=== PATIENT | male | born 1970 | race Two or more races ===

== ENCOUNTER 2017-02-09 08:41 | Emergency (ER) | payer OTHER ==
[~2017-02-09] VITALS: Ht 162.6 cm; Wt 80.7 kg
[~2017-02-09 08:41] MED LIST: ARIP20TA10 PO; CARB200T8 PO; CLON1TAB4 PO; LEVO75TA7 PO
--- NOTE | 2017-02-09 09:00 | NUR ---
BIB SELF C/O DEPRESSION AND ANXIETY, DENIES SI/HI, +AUDITORY/VISUAL HALLUCINATION, RESP EVEN AND UNLABORED, NAD NOTED, VSS, SEEN BY MD. WAITING FOR ORDERS
[2017-02-09 09:17] LABS: APPEARANCE,URINE CLEAR (CLEAR); BILIRUBIN,URINE NEGATIVE (NEGATIVE); BLOOD, URINE NEGATIVE Ery/uL (NEGATIVE); COLOR,URINE YELLOW (YELLOW); KETONES,URINE NEGATIVE (NEGATIVE); LEUKOCYTE ESTERASE ,URINE NEGATIVE (NEGATIVE); NITRITE, URINE NEGATIVE (NEGATIVE); PROTEIN,URINE NEGATIVE (NEGATIVE); UGLUCOSE NEGATIVE (NEGATIVE); UROBILINOGEN,URINE 0.2 EU/dL (0.2)
[2017-02-09 09:19] LABS: BASOPHILS % (AUTO) 0.3 % (0.0-2.0); EOSINOPHILS % (AUTO) 0.1 % (0.0-6.0); HEMATOCRIT 42 % (39-51); HEMOGLOBIN 13.9 g/dL (13.5-17.5); LYMPHOCYTES # (AUTO) 10.5 /CMM (0.8-4.8); LYMPHOCYTES % (AUTO) 67.9 % (20.0-44.0); MEAN CORPUSCULAR HEMOGLOBIN 31 PG (26.0-33.0); MEAN CORPUSCULAR HGB CONC 33 g/dl (31.0-36.0); MEAN CORPUSCULAR VOLUME 92 fL (80-96); MONOCYTES # (AUTO) 0.5 /CMM (0.1-1.30); MONOCYTES % (AUTO) 3.3 % (2.0-12.0); NEUTROPHILS # (AUTO) 4.4 /CMM (1.8-8.9); NEUTROPHILS % (AUTO) 28.4 % (43.0-81.0); PLATELET COUNT (AUTO) 393 /CMM (150-450); RED BLOOD CELL COUNT(AUTO) 4.52 MIL/uL (4.5-6.0); WHITE BLOOD COUNT (AUTO) 15.5 K/uL (4.3-11.0)
[2017-02-09 09:24] LABS: CALCIUM, SERUM 8.7 mg/dL (8.5-10.1); CARBON DIOXIDE 29 mmol/L (21-32); CHLORIDE 96 mmol/L (98-107); CREATININE 0.8 mg/dL (0.6-1.3); GLUCOSE 90 mg/dL (74-106); POTASSIUM 4.1 mmol/L (3.5-5.1); SODIUM SERUM 132 mmol/L (136-145); UREA NITROGEN, BLOOD 8 mg/dL (7-18)
[2017-02-09 09:33] LABS: ALANINE AMINOTRANSFERASE 25 U/L (12-78); ALBUMIN 4.4 g/dL (3.4-5.0); ALKALINE PHOSPHATASE 58 U/L (46-116); ASPARTATE AMINOTRANSFERASE 19 U/L (15-37); BILIRUBIN,DIRECT 0.1 mg/dL (0.0-0.2); BILIRUBIN,TOTAL 0.5 mg/dL (0.2-1.0)
[2017-02-09 09:37] LABS: ACETAMINOPHEN 0 ug/ml (10-30); SALICYLATE 1.8 mg/dL (2.8-20.0)
--- NOTE | 2017-02-09 09:46 | NUR ---
carlyle order runner at bedside for eval
[2017-02-09 09:47] LABS: ALCOHOL, BLOOD < 3 mg/dL (0-0)
[2017-02-09 11:14] VITALS: BP 140/94
--- NOTE | 2017-02-09 11:14 | NUR ---
medically and psych cleared. Patient discharged to home in stable condition. Written and verbal after care instructions given. Patient verbalizes understanding of instruction.
== END 2017-02-09 11:15 | disposition home or self-care (01) ==
LOC: ER 08:43
DX: F41.9 Anxiety disorder, unspecified (principal); E03.9 Hypothyroidism, unspecified; F43.10 Post-traumatic stress disorder, unspecified; F31.9 Bipolar disorder, unspecified
CPT/HCPCS: 36415; 80048; 80076; 80305; 80329; 81001; 85025; 99284; A4606; G0480 ×2; 81000-TC; Z7610

== ENCOUNTER 2017-09-09 10:15 | Inpatient (IN) | payer OTHER ==
[~2017-09-09] VITALS: Ht 162.6 cm; Wt 80.7 kg
[~2017-09-09 10:15] MED LIST changes: -CLON1TAB4 PO; +CLON1TAB5 PO
--- NOTE | 2017-09-09 10:25 | NUR ---
aaox3, came to ER c/o generalized weakness. Skin is warm and dry. Resp is even and unlabored with NAD noted. Placed on the monitor. Will continuously monitor the patient. Awaiting MD for eval.
[2017-09-09 11:07] LABS: BASOPHILS # (AUTO) 0.2 /CMM (0.0-0.2); EOSINOPHILS % (AUTO) 0.1 % (0.0-6.0); HEMATOCRIT 40 % (39-51); HEMOGLOBIN 13.6 g/dL (13.5-17.5); LYMPHOCYTES # (AUTO) 14.3 /CMM (0.8-4.8); LYMPHOCYTES % (AUTO) 69.3 % (20.0-44.0); MEAN CORPUSCULAR HGB CONC 34 g/dl (31.0-36.0); MEAN CORPUSCULAR VOLUME 90 fL (80-96); MONOCYTES # (AUTO) 0.9 /CMM (0.1-1.30); MONOCYTES % (AUTO) 4.6 % (2.0-12.0); NEUTROPHILS # (AUTO) 5.2 /CMM (1.8-8.9); PLATELET COUNT (AUTO) 449 /CMM (150-450); RDW COEFFICIENT OF VARIATION 11.9 (11.5-15.0); RED BLOOD CELL COUNT(AUTO) 4.42 MIL/uL (4.5-6.0); WHITE BLOOD COUNT (AUTO) 20.6 K/uL (4.3-11.0)
--- NOTE | 2017-09-09 11:16 | NUR ---
CALLED LOCO FOR PSYCH EVAL, NO ANSWER, LEFT MESSAGE ON VOICEMAIL
[2017-09-09 11:22] LABS: ALANINE AMINOTRANSFERASE 24 U/L (12-78); ALBUMIN 3.9 g/dL (3.4-5.0); ALCOHOL, BLOOD < 3 mg/dL (0-0); ALKALINE PHOSPHATASE 62 U/L (46-116); ASPARTATE AMINOTRANSFERASE 21 U/L (15-37); BILIRUBIN,DIRECT 0.2 mg/dL (0.0-0.2); BILIRUBIN,TOTAL 0.6 mg/dL (0.2-1.0); CALCIUM, SERUM 8.3 mg/dL (8.5-10.1); CARBON DIOXIDE 24 mmol/L (21-32); CREATININE 0.7 mg/dL (0.6-1.3); GLUCOSE 97 mg/dL (74-106); TOTAL PROTEIN, SERUM 8.7 g/dL (6.4-8.2); UREA NITROGEN, BLOOD 8 mg/dL (7-18)
--- NOTE | 2017-09-09 11:34 | NUR ---
TRIED TO REACH LOCO AGAIN FOR PSYCH EVAL, NO ANSWER.
[2017-09-09 11:35] LABS: ACETAMINOPHEN < 2 ug/ml (10-30); CHLORIDE 86 mmol/L (98-107); POTASSIUM 3.7 mmol/L (3.5-5.1); SALICYLATE 1.5 mg/dL (2.8-20.0)
[2017-09-09 11:36] LABS: SODIUM SERUM 116 mmol/L (136-145)
--- NOTE | 2017-09-09 11:51 | NUR ---
CALLED NURSING SUP. FOR TELE BED
[2017-09-09] MEDS ORDERED: ARIP15TA8 PO (12:00)
--- NOTE | 2017-09-09 12:03 | NUR ---
TELE 320-1
[2017-09-09 12:11] LABS: APPEARANCE,URINE Clear (CLEAR); BILIRUBIN,URINE Negative (NEGATIVE); BLOOD, URINE Negative Ery/uL (NEGATIVE); COLOR,URINE Yellow (YELLOW); KETONES,URINE Trace (NEGATIVE); LEUKOCYTE ESTERASE ,URINE Negative (NEGATIVE); NITRITE, URINE Negative (NEGATIVE); PROTEIN,URINE Negative (NEGATIVE); UGLUCOSE Negative (NEGATIVE); UROBILINOGEN,URINE 0.2 EU/dL (0.2)
[2017-09-09 12:13] LABS: BACTERIA,URINE Rare /HPF (None Seen); RBC,URINE NONE SEEN /HPF (0-2); SQUAMOUS EPITHELIAL CELL,UR Few /HPF (None Seen); WBC,URINE NONE SEEN /HPF (0-3)
[2017-09-09 12:40] LABS: BAND % (MANUAL) 1 % (0.0-5.0); LYMPHOCYTES % (MANUAL) 51 % (16-48); MONOCYTES % (MANUAL) 5 % (0-11.0); NEUTROPHILS % (MANUAL) 34 (42-76); REACTIVE LYMPHOCYTES 9 % (0-0)
[2017-09-09 13:00] VITALS: BP 142/88
[2017-09-09] MEDS: LEVOTHYROXINE SODIUM 75 MCG TABLET PO SCH (13:00)
[2017-09-09] MEDS ORDERED: TEMAZEPAM 15 MG CAPSULE PO PRN (13:00)
[2017-09-09] MEDS ORDERED: ACETAMINOPHEN ES 500 MG TABLET PO PRN (13:00)
[2017-09-09] MEDS: CARBAMAZEPINE 200 MG TABLET PO SCH ×2 (13:00→21:15)
[2017-09-09] MEDS ORDERED: clonazePAM 1 MG TABLET PO PRN (13:00)
[2017-09-09] MEDS ORDERED: GUAIFENESIN/D-METHORPHAN HB 5 ML UDC PO PRN (13:00)
--- NOTE | 2017-09-09 13:02 | NUR ---
Report given to RAÚL Abernathy for [facility] Tele 320-1
[2017-09-09 13:15] VITALS: BP 142/88
--- NOTE | 2017-09-09 13:20 | NUR ---
PATIENT RECEIVED AND IN BED. NO SOB OR DISTRESS NOTED AT THIS TIME. PATIENT DENIES PAIN. PATIENT ORIENTED TO ROOM AND CALL LIGHT. PLACED ON MONITOR, HEART RATE SR 72. ALL BELONGINGS ACCOUNTED FOR. BED IN A LOW POSITION, CALL LIGHT WITHIN PATIENT REACH. WILL MONITOR.
[2017-09-09] MEDS: LEVOFLOXACIN 500 MG /D5W 100ML 500 MG in PREMIX 1 EA IV SCH (13:37)
[2017-09-09] MEDS: clonazePAM 1 MG TABLET PO PRN (13:37)
[2017-09-09] MEDS: Potassium Chloride 20 MEQ in IV NS 0.9% 1,000 ML IV PRN (13:37)
--- NOTE | 2017-09-09 13:47 | NUR ---
PT REFUSED SYNTHROID AND TEGRETOL HE STATES HE ALREADY TOOK THESE MEDICATIONS TODAY. STATES HE TAKES TEGRETOL 200MG IN AM AND 600 IN THE EVENING. WILL CALL CELIA TO SEE IF HE WISHED TO CONTINUE AM DOSE.
--- NOTE | 2017-09-09 13:55 | NUR ---
CALLED DR YANG AND INFORMED THE MD THAT THE PATIENT ALSO TAKES 200MG TEGRETOL IN THE AM. MD STATES TO CONTINUE ANYTHING THE PATIENT NORMALLY TAKES AT HOME WITH NO RESTRICTION. SENT MED REC TO PHARMACY FOR UPDATE.
--- NOTE | 2017-09-09 14:16 | NUR ---
FAXED PT FACE SHEET TO [facility] PER DR YANG'S ORDER. CALLED TO CONFIRM THE FACE SHEET WAS RECEIVED. STAFF STATE THE SHEET IS RECEIVED AND DR KOWALSKI IS ON THE FLOOR. IS INFORMED OF CONSULT.
--- NOTE | 2017-09-09 15:49 | NUR ---
called for consult, per he will come to see pt tomorrow
[2017-09-09 16:00] VITALS: BP 108/71
--- NOTE | 2017-09-09 19:15 | NUR ---
RN OPENING NOTES RECEIVED PATIENT AMBULATING FROM THE BATHROOM, ALERT AND ORIENTED X 4, SAFELY WALKED BACK TO BED, AWARE OF SAFETY NEEDS. PT NOTED WITH NO SOB, BREATHING EVEN AND UNLABORED, WITH NO C/O PAIN AND IN NO ACUTE DISTRESS. ALL PATIENT'S NEEDS ATTENDED TO AT THIS TIME. PATIENT RECEIVING IVF ORDERED. PLACED BED IN LOW POSITION AND LOCKED IN PLACE. CALL LIGHT IN EASY REACH. WILL CONTINUE TO MONITOR.
--- NOTE | 2017-09-09 19:20 | NUR ---
OVERLOCK ELASTIC ATTACHER NOTES PATIENT UNDER TELE MONITORING WITH SR @ 70 BPM.
[2017-09-09 20:30] VITALS: BP 108/69
--- NOTE | 2017-09-09 21:15 | NUR ---
RN NOTES PATIENT TOOK OWN MEDICATION AT THIS TIME: TEGRETOL 600 MG PO, PER PATIENT'S REQUEST. RESPECTED PATIENT'S DECISION. PATIENT TOOK OWN MEDICATION UNDER RN SUPERVISION. EXPLAINED TO PATIENT THAT ALL MEDICATION AT BEDSIDE NEEDS TO BE COLLECTED. PATIENT VERBALIZED UNDERSTANDING. ALL PATIENT'S NEEDS ATTENDED TO, PLACED CALL LIGHT WITHIN EASY REACH. WILL CONTINUE TO MONITOR.
[2017-09-09] MEDS ORDERED: ARIPIPRAZOLE 5 MG TABLET PO SCH (22:00)
[2017-09-10] VITALS: BP 105/68
[2017-09-10] MEDS ORDERED: IV PREMIX NS +20MEQ KCL 1 L IV ONE (02:36)
[2017-09-10] MEDS: Potassium Chloride 20 MEQ in IV NS 0.9% 1,000 ML IV PRN (02:58)
[2017-09-10 04:26] VITALS: BP 103/69
[2017-09-10 06:28] LABS: BASOPHILS # (AUTO) 0.1 /CMM (0.0-0.2); BASOPHILS % (AUTO) 0.5 % (0.0-2.0); EOSINOPHILS % (AUTO) 0.1 % (0.0-6.0); HEMATOCRIT 39 % (39-51); HEMOGLOBIN 13.3 g/dL (13.5-17.5); LYMPHOCYTES # (AUTO) 11.8 /CMM (0.8-4.8); MEAN CORPUSCULAR HGB CONC 34 g/dl (31.0-36.0); MEAN CORPUSCULAR VOLUME 91 fL (80-96); MONOCYTES # (AUTO) 0.7 /CMM (0.1-1.30); MONOCYTES % (AUTO) 4.3 % (2.0-12.0); NEUTROPHILS # (AUTO) 3.4 /CMM (1.8-8.9); NEUTROPHILS % (AUTO) 21.1 % (43.0-81.0); PLATELET COUNT (AUTO) 350 /CMM (150-450); RDW COEFFICIENT OF VARIATION 13.4 (11.5-15.0); RED BLOOD CELL COUNT(AUTO) 4.26 MIL/uL (4.5-6.0); WHITE BLOOD COUNT (AUTO) 15.9 K/uL (4.3-11.0)
--- NOTE | 2017-09-10 06:33 | NUR ---
BODY ROLLING MACHINE TENDER CLOSING NOTES PATIENT IN BED, ASLEEP BUT EASILY AROUSABLE, ALERT AND ORIENTED X 4, SLEPT WELL, NOTED WITH NO SOB, BREATHING EVEN AND UNLABORED, RECEIVING IVF ORDERED VIA RAC G#20, INFUSING WELL. ON TELE MONITORING WITH SR @ 60-70s. ALL PATIENT'S NEEDS ATTENDED TO THROUGHOUT THE SHIFT. CALL LIGHT WITHIN EASY REACH. KEPT PT SAFE AND DRY, CLEAN AND COMFORTABLE. WILL ENDORSE TO AM SHIFT NURSE FOR CONTINUITY OF CARE.
[2017-09-10 06:47] LABS: CALCIUM, SERUM 8.3 mg/dL (8.5-10.1); CREATININE 0.8 mg/dL (0.6-1.3)
[2017-09-10] MEDS: LEVOTHYROXINE SODIUM 75 MCG TABLET PO SCH (06:47)
[2017-09-10 06:52] LABS: ALBUMIN 3.6 g/dL (3.4-5.0); BILIRUBIN,TOTAL 0.6 mg/dL (0.2-1.0); TOTAL PROTEIN, SERUM 7.9 g/dL (6.4-8.2)
[2017-09-10 07:01] VITALS: BP 105/69
--- NOTE | 2017-09-10 08:00 | NUR ---
rn notes RECEIVED PATIENT IN THE BED A/O X4. PATIENT ON TELE SR- 67, PATIENT HAS NO RESPIRATORY DISTRESS. V/S TAKEN STABLE. PATIENT HAS NO ACUTE DISTRESS. ENCOURAGED T EXPRESS FEELINGS AND CONCERNS . PATIENT MED COMPLIANT. INFUSING NS AT 100 ML/HR, SCHEDULED MEDICATION ADMINISTERED. PATIENT AMBULATORY, SELF CARE, USING BATHROOM. PATIENT NEEDS ATTENDED AND ANTICIPATED. CALL LIGHT WITHIN TO REACH, CONTINUED MONITORING.
[2017-09-10] MEDS ORDERED: CARBAMAZEPINE 200 MG TABLET PO SCH (09:00)
[2017-09-10] MEDS ORDERED: LEVO500T75 PO (09:36)
[2017-09-10 09:45] LABS: LYMPHOCYTES % (MANUAL) 64 % (16-48); NEUTROPHILS % (MANUAL) 23 (42-76); REACTIVE LYMPHOCYTES 9 % (0-0)
[2017-09-10 09:46] LABS: MONOCYTES % (MANUAL) 4 % (0-11.0)
[2017-09-10] MEDS: clonazePAM 1 MG TABLET PO PRN (10:24)
--- NOTE | 2017-09-10 10:31 | NUR ---
rn notes ADMINISTERED KLONOPIN 1 MG PO PRN FOR ANXIETY, IRRITABLE., PER PATIENT REQUEST. V/S TAKEN BP-110/70,BP-70, CONTINUED MONITORING.
[2017-09-10] MEDS: LEVOFLOXACIN 500 MG /D5W 100ML 500 MG in PREMIX 1 EA IV SCH (12:15)
--- NOTE | 2017-09-10 13:00 | NUR ---
RN NOTES PATIENT SEEN BY PSYCHIATRIST Dr. KOWALSKI CLEAR TO DISCHARGE HOME. PER Md. YANG PATIENT D/C HOME. PATIENT WILL FOLLOW PRIMARY MD. CONTINUED MONITORING.
--- NOTE | 2017-09-10 15:00 | NUR ---
DISCHARGE NOTES PATIENT DISCHARGE AT THIS TIME GOING HOME SELF CARE. PATIENT MED COMPLIANT, V/S STABLE, NO RESPIRATORY DISTRESS, NO C/O PAIN , STABLE TO D/C HOME. PRESCRIPTION GIVEN TO THE PATIENT. BELONGING WITH THE PATIENT. PATIENT VERBALIZED UNDERSTANDING. PATIENT SIGN PAPERWORK. PATIENT WILL FOLLOW PRIMARY BUTT PRESSER. ESCORTED PATIENT TO THE LOBBY FOR SAFETY.
== END 2017-09-10 14:50 | disposition home or self-care (01) | DRG 194 ==
LOC: ER 10:19 → TELE 12:37 → MED 09-10 08:21
PROVIDERS: ADMIT Internal Medicine; ATTEND Internal Medicine
DX: J15.9 Unspecified bacterial pneumonia (principal); E87.1 Hypo-osmolality and hyponatremia; F31.63 Bipolar disorder, current episode mixed, severe, without psychotic features; E03.9 Hypothyroidism, unspecified; F41.9 Anxiety disorder, unspecified; F43.10 Post-traumatic stress disorder, unspecified; X58.XXXS Exposure to other specified factors, sequela; Z79.899 Other long term (current) drug therapy; J20.9 Acute bronchitis, unspecified
CPT/HCPCS: 36415; 71046; 80048-TC; 80053-TC; 80076-TC; 80305; 81000-TC; 84443-TC; 85025-TC; 87081-TC; 87400; A4216; A4606; G0480; J1956; J3480; J3490; J7030; Z7610

== ENCOUNTER 2017-11-08 10:00 | Emergency (ER) | payer MEDICAID, MEDICARE, OTHER ==
[~2017-11-08] VITALS: Ht 167.6 cm; Wt 75.3 kg
[~2017-11-08 10:00] MED LIST changes: +ARIP15TA8 PO; -ARIP20TA10 PO; +LEVO500T75 PO
[2017-11-08 10:36] LABS: BASOPHILS # (AUTO) 0.3 /CMM (0.0-0.2); BASOPHILS % (AUTO) 2.3 % (0.0-2.0); EOSINOPHILS % (AUTO) 0.2 % (0.0-6.0); HEMATOCRIT 39 % (39-51); HEMOGLOBIN 13.4 g/dL (13.5-17.5); LYMPHOCYTES # (AUTO) 9.8 /CMM (0.8-4.8); LYMPHOCYTES % (AUTO) 72.9 % (20.0-44.0); MEAN CORPUSCULAR HGB CONC 35 g/dl (31.0-36.0); MEAN CORPUSCULAR VOLUME 90 fL (80-96); MONOCYTES # (AUTO) 0.7 /CMM (0.1-1.30); MONOCYTES % (AUTO) 4.9 % (2.0-12.0); NEUTROPHILS # (AUTO) 2.7 /CMM (1.8-8.9); NEUTROPHILS % (AUTO) 19.7 % (43.0-81.0); PLATELET COUNT (AUTO) 385 /CMM (150-450); RDW COEFFICIENT OF VARIATION 11.9 (11.5-15.0); RED BLOOD CELL COUNT(AUTO) 4.28 MIL/uL (4.5-6.0); WHITE BLOOD COUNT (AUTO) 13.5 K/uL (4.3-11.0)
[2017-11-08 10:46] LABS: CALCIUM, SERUM 8.9 mg/dL (8.5-10.1); CARBON DIOXIDE 27 mmol/L (21-32); CHLORIDE 95 mmol/L (98-107); CREATININE 0.9 mg/dL (0.6-1.3); GLUCOSE 101 mg/dL (74-106); POTASSIUM 4.5 mmol/L (3.5-5.1); SODIUM SERUM 127 mmol/L (136-145); UREA NITROGEN, BLOOD 6 mg/dL (7-18)
[2017-11-08 10:51] LABS: ALANINE AMINOTRANSFERASE 20 U/L (12-78); ALKALINE PHOSPHATASE 59 U/L (46-116); ASPARTATE AMINOTRANSFERASE 17 U/L (15-37); BILIRUBIN,DIRECT 0.1 mg/dL (0.0-0.2); BILIRUBIN,TOTAL 0.4 mg/dL (0.2-1.0); TOTAL PROTEIN, SERUM 8.4 g/dL (6.4-8.2)
[2017-11-08 10:52] LABS: ALCOHOL, BLOOD < 3 mg/dL (0-0)
[2017-11-08 11:56] LABS: APPEARANCE,URINE Clear (CLEAR); BILIRUBIN,URINE Negative (NEGATIVE); BLOOD, URINE Negative Ery/uL (NEGATIVE); COLOR,URINE Yellow (YELLOW); KETONES,URINE Negative (NEGATIVE); LEUKOCYTE ESTERASE ,URINE Negative (NEGATIVE); NITRITE, URINE Negative (NEGATIVE); PH,URINE 7.5 (5.0-8.0); PROTEIN,URINE Negative (NEGATIVE); UGLUCOSE Negative (NEGATIVE); UROBILINOGEN,URINE 0.2 EU/dL (0.2)
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
[2017-11-08 15:00] VITALS: BP 113/78
--- NOTE | 2017-11-08 15:17 | NUR ---
Patient discharged to home in stable condition. Written and verbal after care instructions given. Patient verbalizes understanding of instruction.
== END 2017-11-08 15:17 | disposition home or self-care (01) ==
LOC: ER 10:15
DX: F41.9 Anxiety disorder, unspecified (principal); F22 Delusional disorders; E87.1 Hypo-osmolality and hyponatremia; F31.9 Bipolar disorder, unspecified; F43.10 Post-traumatic stress disorder, unspecified; E03.9 Hypothyroidism, unspecified
CPT/HCPCS: 36415; 80048; 80076; 80305; 81001; 85025; 99284; A4606; G0480; 81000-TC; Z7610

== ENCOUNTER 2019-03-04 06:46 | Inpatient (IN) | payer OTHER, MEDICAID ==
[~2019-03-04] VITALS: Ht 167.6 cm; Wt 83.9 kg
[~2019-03-04 06:46] MED LIST changes: +CLON1TAB12 PO; -CLON1TAB5 PO
[2019-03-04] MEDS ORDERED: OLANZAPINE 5 MG TABLET ONE (07:13)
--- NOTE | 2019-03-04 07:15 | NUR ---
WEB PRESSMAN AT BEDSIDE FOR BLOOD DRAW.
--- NOTE | 2019-03-04 07:21 | NUR ---
PT WANDED BY SECURITY. PLACED ON HOSPITAL GOWN. UNABLE TO PROVIDE URINE SAMPLE AT THIS TIME.
[2019-03-04 07:28] LABS: BASOPHILS # (AUTO) 0.2 /CMM (0.0-0.2); BASOPHILS % (AUTO) 0.5 % (0.0-2.0); HEMATOCRIT 41 % (39-51); HEMOGLOBIN 14.2 g/dL (13.5-17.5); LYMPHOCYTES # (AUTO) 24.2 /CMM (0.8-4.8); LYMPHOCYTES % (AUTO) 83.9 % (20.0-44.0); MEAN CORPUSCULAR HGB CONC 35 g/dl (31.0-36.0); MEAN CORPUSCULAR VOLUME 91 fL (80-96); MONOCYTES # (AUTO) 0.6 /CMM (0.1-1.30); NEUTROPHILS # (AUTO) 3.9 /CMM (1.8-8.9); NEUTROPHILS % (AUTO) 13.6 % (43.0-81.0); PLATELET COUNT (AUTO) 361 /CMM (150-450); RED BLOOD CELL COUNT(AUTO) 4.51 MIL/uL (4.5-6.0); WHITE BLOOD COUNT (AUTO) 28.9 K/uL (4.3-11.0)
[2019-03-04] MEDS ORDERED: OLANZAPINE 5 MG TABLET PO ONE (07:30)
[2019-03-04 07:38] LABS: CALCIUM, SERUM 8.4 mg/dL (8.5-10.1); CARBON DIOXIDE 23 mmol/L (21-32); CHLORIDE 89 mmol/L (98-107); GLUCOSE 95 mg/dL (74-106); SODIUM SERUM 124 mmol/L (136-145); UREA NITROGEN, BLOOD 7 mg/dL (7-18)
[2019-03-04 07:54] LABS: ALANINE AMINOTRANSFERASE 25 U/L (12-78); ALBUMIN 4.4 g/dL (3.4-5.0); ALCOHOL, BLOOD < 3 mg/dL (0-0); ALKALINE PHOSPHATASE 64 U/L (46-116); ASPARTATE AMINOTRANSFERASE 24 U/L (15-37); BILIRUBIN,DIRECT 0.2 mg/dL (0.0-0.2); BILIRUBIN,TOTAL 0.7 mg/dL (0.2-1.0); TOTAL PROTEIN, SERUM 8.6 g/dL (6.4-8.2)
[2019-03-04 07:57] LABS: ACETAMINOPHEN 0 ug/ml (10-30); SALICYLATE 1.4 mg/dL (2.8-20.0)
[2019-03-04 08:03] LABS: LYMPHOCYTES % (MANUAL) 75 % (16-48); MONOCYTES % (MANUAL) 3 % (0-11.0); NEUTROPHILS % (MANUAL) 20 (42-76); REACTIVE LYMPHOCYTES 2 % (0-0)
--- NOTE | 2019-03-04 08:24 | NUR ---
POTATO SPOTTER AT BEDSIDE TO TAKE PATIENT FOR CT SCAN
--- NOTE | 2019-03-04 08:42 | NUR ---
Social service consult requested by Dr. Reid for hallucinations. Pt. is a 48 year old male who came to [facility] complaining of feeling depressed after he was diagnosed with Leukemia last week. SUNDAY met with the pt. bedside. Pt. is alert and oriented x 3. Pt. appears guarded and paranoid. Pt. is well-groomed. Pt. states he lives alone in [place]. Pt's psychiatrist is Dr. Solorzano. Pt. states he is diagnosed with Bipolar and PTSD and recently with Leukemia. Pt. states he is having hallucinations and stated, " the people upstairs gave me Leukemia with their air conditioner." Pt. refuses to go voluntary to a psychiatric hospital stating, " I don't like crowds." Pt. denies suicidal ideations at this time. SUNDAY will refer pt. to crisis team hotel yardperson Art for further psychiatric evaluation. SUNDAY informed FABRICIO Aaron to have crisis hotel yardperson Art further assess the pt.
--- NOTE | 2019-03-04 10:10 | NUR ---
URINE COLLECTED SENT TO LAB
[2019-03-04 10:19] LABS: APPEARANCE,URINE Clear (CLEAR); BILIRUBIN,URINE Negative (NEGATIVE); BLOOD, URINE Negative Ery/uL (NEGATIVE); COLOR,URINE Yellow (YELLOW); KETONES,URINE 40 (NEGATIVE); LEUKOCYTE ESTERASE ,URINE Negative (NEGATIVE); NITRITE, URINE Negative (NEGATIVE); PROTEIN,URINE Negative (NEGATIVE); UGLUCOSE Negative (NEGATIVE); UROBILINOGEN,URINE 0.2 EU/dL (0.2)
[2019-03-04] MEDS ORDERED: ARIP30TA3 PO (10:22)
[2019-03-04 10:30] LABS: BACTERIA,URINE None seen /HPF (None Seen); SQUAMOUS EPITHELIAL CELL,UR Few /HPF (None Seen); WBC,URINE 0-3 /HPF (0-3)
--- NOTE | 2019-03-04 10:58 | NUR ---
CALLED NURSING SUP FOR BED AND GAVE GPS BED 214.
--- NOTE | 2019-03-04 11:39 | NUR ---
CALLED GPS REPORT GIVEN MARTIN
[2019-03-04 13:50] VITALS: BP 129/89
--- NOTE | 2019-03-04 13:59 | NUR ---
GPS ADMITTING NOTE: PATIENT 48 Y/O MALE ADMIT VOLUNTARY AFTER HAVING PARANOID DELUSIONS, ANXIETY,SI WITH NO PLAN.UPON FACE TO FACE EVALUATION PT A/OX4, AMBULATORY STEADY GAIT,ANXIOUS PARANOID WITH HX HE WAS RECENTLY DIAGNOSED, EXTREMELY ANXIOUS. PT HAS DIAGNOSIS OF BIPOLAR DISORDER,PTSD, ANXIETY, HYPOTHYROIDISM , CLL,HYPONATREMIA.PT LIVES ALONE AT HOME FRIEND NEXT OF KIN NOTIFIED PER PT REQUEST. PT WBC 28.9 NA 124 PT WAS SEEN AND EXAMINE BY RECORDS ANALYSIS MANAGER KRUNAL SWAN, BERNA AND NURSING TEACHER OF THE SIGHT IMPAIRED AWARE OF LABS AND DIAGNOSIS. PT VSS, ALL BELONGINGS CHECKED FOR CONTRABAND DR KOWALSKI NOTIFIED WITH STANDING ORDER, PT REFUSED SKIN ASSESSMENT AT THIS TIME WILL CONTINUE MONITORING FOR SAFETY AND BEHAVIOR Q 15 MIN.
[2019-03-04] MEDS ORDERED: ZOLPIDEM TARTRATE 10 MG TABLET PO PRN (14:30)
[2019-03-04] MEDS ORDERED: LORAZEPAM 0.5 MG TABLET PO PRN ×2 (14:30→16:00)
[2019-03-04] MEDS ORDERED: BLOOD SUGAR DIAGNOSTIC 1 EACH STRIP IN ONE ×2 (14:30→16:00)
[2019-03-04] MEDS ORDERED: MAGNESIUM HYDROXIDE 30 ML UDC PO PRN ×2 (14:30→16:00)
[2019-03-04] MEDS ORDERED: ACETAMINOPHEN 325 MG TABLET PO PRN ×2 (14:30→16:00)
[2019-03-04] MEDS ORDERED: MAG HYDROX/AL HYDROX/SIMETH 30 ML UDC PO PRN ×2 (14:30→16:00)
--- NOTE | 2019-03-04 14:33 | NUR ---
GPS RN NOTE: PT REFUSED TO DO FULL BODY ASSESSMENT AND PICTURES ARGUMENTATIVE AND PARANOID AT THIS TIME.
[2019-03-04] MEDS ORDERED: TEMAZEPAM 7.5 MG CAPSULE PO PRN (16:00)
[2019-03-04 16:20] VITALS: BP 125/88
[2019-03-04] MEDS: SODIUM CHLORIDE 1000 MG TABLET PO SCH (17:36)
[2019-03-04] MEDS: CARBAMAZEPINE 100 MG TAB.CHEW PO SCH (17:36)
[2019-03-04] MEDS: ARIPIPRAZOLE 5 MG TABLET PO SCH (17:37)
--- NOTE | 2019-03-04 19:50 | NUR ---
PATIENT SEEN AND EXAMINED BY DR. CERVANTES, LABS REVIEWED AND NOTED WITH HYPONATREMIA. DR. CERVANTES RECOMMENDED NEPHROLOGY CONSULT NOTED AND WILL FOLLOW UP IN AM.
[2019-03-04 21:09] VITALS: BP 114/76
[2019-03-05 07:28] LABS: BILIRUBIN,TOTAL 0.5 mg/dL (0.2-1.0); CALCIUM, SERUM 8.7 mg/dL (8.5-10.1); POTASSIUM 4.3 mmol/L (3.5-5.1); TOTAL PROTEIN, SERUM 7.9 g/dL (6.4-8.2)
[2019-03-05 08:00] VITALS: BP 100/73
[2019-03-05 08:02] LABS: CHOLESTEROL 205 mg/dL (<200); HDL CHOLESTEROL 42 mg/dL (40-60); LDL 149 mg/dL (0-99); TRIGLYCERIDES 56 mg/dL (30-150)
[2019-03-05] MEDS: LEVOTHYROXINE SODIUM 75 MCG TABLET PO SCH (09:11)
[2019-03-05] MEDS: SODIUM CHLORIDE 1000 MG TABLET PO SCH (09:11)
[2019-03-05] MEDS: ARIPIPRAZOLE 5 MG TABLET PO SCH ×2 (09:11→16:47)
[2019-03-05] MEDS: CARBAMAZEPINE 100 MG TAB.CHEW PO SCH ×2 (09:12→16:47)
--- NOTE | 2019-03-05 10:41 | NUR ---
GPS/RN-NOTES DR. CHRISTIANSON MADE AWARE OF THE CONSULTS.
--- NOTE | 2019-03-05 14:13 | NUR ---
Initial Discharge Plan: Pt currently resides at his home located at [address] [place] [address]; ([phone]). Per pt, he would like to return to his home. SW will work with the pt and the MD regarding appropriate discharge planning. SW will form a safe and proper discharge plan.
[2019-03-05 16:00] VITALS: BP 110/66
[2019-03-05 19:44] LABS: URINE SODIUM, RANDOM 14 mmol/l (40-220)
[2019-03-05 20:07] LABS: OSMOLALITY,URINE 181 mOS/kg (340-1090)
[2019-03-05 20:28] VITALS: BP 101/65
[2019-03-06] MEDS: LEVOTHYROXINE SODIUM 75 MCG TABLET PO SCH (07:49)
[2019-03-06 08:00] VITALS: BP 101/76
[2019-03-06 08:03] LABS: CALCIUM, SERUM 8.6 mg/dL (8.5-10.1); MAGNESIUM 2.2 mg/dL (1.8-2.4); PHOSPHORUS 3.5 mg/dL (2.5-4.9); POTASSIUM 3.6 mmol/L (3.5-5.1)
[2019-03-06 08:26] LABS: BASOPHILS # (AUTO) 0.1 /CMM (0.0-0.2); BASOPHILS % (AUTO) 0.2 % (0.0-2.0); EOSINOPHILS % (AUTO) 0.4 % (0.0-6.0); HEMATOCRIT 42 % (39-51); HEMOGLOBIN 14.4 g/dL (13.5-17.5); LYMPHOCYTES % (AUTO) 77.1 % (20.0-44.0); MEAN CORPUSCULAR HGB CONC 34 g/dl (31.0-36.0); MEAN CORPUSCULAR VOLUME 91 fL (80-96); MONOCYTES # (AUTO) 0.7 /CMM (0.1-1.30); MONOCYTES % (AUTO) 3.2 % (2.0-12.0); NEUTROPHILS # (AUTO) 4.2 /CMM (1.8-8.9); NEUTROPHILS % (AUTO) 19.1 % (43.0-81.0); PLATELET COUNT (AUTO) 342 /CMM (150-450); WHITE BLOOD COUNT (AUTO) 22.1 K/uL (4.3-11.0)
[2019-03-06 08:29] LABS: THYROID STIMULATING HORMONE 5.053 uIU/mL (0.358-3.74); URIC ACID 4.5 mg/dL (2.6-7.2)
[2019-03-06] MEDS: SODIUM CHLORIDE 1000 MG TABLET PO SCH (08:30)
[2019-03-06] MEDS: ARIPIPRAZOLE 5 MG TABLET PO SCH ×2 (08:32→17:10)
[2019-03-06] MEDS: CARBAMAZEPINE 100 MG TAB.CHEW PO SCH ×2 (08:32→17:10)
[2019-03-06] MEDS ORDERED: clonazePAM 0.5 MG TABLET PO PRN (15:30)
--- NOTE | 2019-03-06 15:52 | NUR ---
RN NOTE- PT W C/O ANXIETY. RACING THOUGHTS. ASKED FOR PRN KLONOPIN. RX ORDERED IS ATIVAN. OFFERED TO PT. STATED ATIVAN DOESN'T WORK WITH HIM. DR HOWELL CHANGED TO KLONOPIN 0.25 MG PO Q6 PRN. KLONOPIN GIVEN AT THIS TIME.
--- NOTE | 2019-03-06 15:57 | NUR ---
UR Note: SUNDAY called the pts family preservation caseworker, Karol ([phone]), and left a voicemail that informed her that the pt will be discharged the following day.
--- NOTE | 2019-03-06 15:58 | NUR ---
Group Note: SW encouraged pt to participate in group therapy on 03/06/19 at 2pm discussing the topic of depression. Pt stated that he was feeling much better and that his problem was initially with hallucinations. Pt stated that he will be discharged tomorrow and does not need any more assistance.
[2019-03-06 16:00] VITALS: BP 129/81
--- NOTE | 2019-03-06 19:26 | NUR ---
PATIENT SLEEPING DURING INITIL ROUNDING, BED ALARM ON, BED LOXKED AND ON LOWEST POSITION TO PREVENT FALL, CALM, QUIET, APPEARS COMFORTABLE, NO APPARENT DISTRESS NOTED. ENVIRONMENTAL SAFETY CHECK DONE. FALL RISK/PRECAUTION IN PLACE. WILL CONTINUE TO MONITOR Q 15 MINS. FOR SAFETY AND BEHAVIOR.
[2019-03-06 20:44] VITALS: BP 100/72
[2019-03-07 08:00] VITALS: BP 110/72
[2019-03-07] MEDS: CARBAMAZEPINE 100 MG TAB.CHEW PO SCH (08:46)
[2019-03-07] MEDS: LEVOTHYROXINE SODIUM 75 MCG TABLET PO SCH (08:46)
[2019-03-07] MEDS: ARIPIPRAZOLE 5 MG TABLET PO SCH (08:46)
[2019-03-07] MEDS: SODIUM CHLORIDE 1000 MG TABLET PO SCH (08:46)
--- NOTE | 2019-03-07 09:45 | NUR ---
DR. HOWELL GAVE AN ORDER TO D/C HOME AND TO FOLLOW UP WITH PSYCH AND MEDICAL DOCTORS.
--- NOTE | 2019-03-07 15:14 | NUR ---
ROOF BOLTER NOTE: PATIENT IS A 48 YEAR OLD MALE DISCHARGED HOME TO [address] [facility] [address] [facility] [address] . PATIENT IS IN STABLE CONDITION. VSS. NO ACUTE DISTRESS NOTED. NO COMPLAINTS. COMPLIANT WITH MEDICATION MANAGEMENT. COOPERATIVE WITH PLAN OF CARE. PSYCHIATRIC TREATMENT PLANS MET. MEDICAL TREATMENT PLANS DEFERRED FOR CONTINUAL MONITORING. DENIES SI/HI VAH AT THE TIME OF DISCHARGE. PATIENT REFUSES SKIN CHECK. EDUCATED PATIENT ABOUT AFTERCARE WITH COPY PROVIDED. RETURNED PERSONAL BELONGINGS TO PATIENT. MEDICATIONS RECONCILED WITH DR HOWELL AND DR PEARSON ALONG WITH PSYCHIATRIC DISCHARGE ORDERS. DISCHARGE PAPERWORK SIGNED. FOR FOLLOW UP WITH PSYCHIATRIST DR HOWELL [address] [facility] [address] [facility] [address] RIKA CORONADO [address] [facility] [id number] WITHIN 1 WEEK. PATIENT LEFT THE [facility] GPS AT 1430 VIA TAXI.
--- NOTE | 2019-03-07 16:26 | NUR ---
Discharge Note: Pt will be discharged tomorrow back to his home located at [address] [facility], [address] [address]; ([phone]). Pt will be discharged at 2pm. There is no one to notify regarding this discharge. Upon discharge, the pt appeared to be in a euthymic mood and presented with a calm affect. Pt denied suicidal and homicidal ideation and auditory and visual hallucinations. Pt will be under the care of psychiatrist, Dr. Solorzano, located at [address] [place] [address], [place] [address]; ; a fax of records was sent to: ). Pt will be under the care of his data warehouse specialist, Dr. Mari Warren, [place] [address] [place] [address]; .
== END 2019-03-07 14:30 | disposition home or self-care (01) | DRG 885 ==
LOC: ER 06:46 → GPS 13:58
PROVIDERS: ADMIT Psychiatry & Neurology Psychosomatic Medicine; ATTEND Student in an Organized Health Care Education/Training Program
DX: F25.9 Schizoaffective disorder, unspecified (principal); E87.1 Hypo-osmolality and hyponatremia; C91.10 Chronic lymphocytic leukemia of B-cell type not having achieved remission; F32.2 Major depressive disorder, single episode, severe without psychotic features; R45.851 Suicidal ideations; E03.9 Hypothyroidism, unspecified; F41.9 Anxiety disorder, unspecified; F29 Unspecified psychosis not due to a substance or known physiological condition; F43.10 Post-traumatic stress disorder, unspecified; S39.92XA Unspecified injury of lower back, initial encounter; X58.XXXA Exposure to other specified factors, initial encounter; Y92.9 Unspecified place or not applicable
CPT/HCPCS: 36415; 70450-TC; 80048-TC; 80053-TC; 80061-TC; 80076-TC; 80305; 81000-TC; 83735-TC; 83935-TC; 84100-TC; 84300-TC; 84439-TC; 84443-TC; 84550-TC; 85025-TC; 87081-TC; G0480

== ENCOUNTER 2020-04-01 17:32 | Inpatient (IN) | payer OTHER ==
[~2020-04-01] VITALS: Ht 167.6 cm; Wt 91.2 kg
[~2020-04-01 17:32] MED LIST changes: +ARIP30TA3 PO; -LEVO500T75 PO
--- NOTE | 2020-04-01 17:53 | NUR ---
PT AMBULATORY TO ER BED 13 C/O BEING "STRESSED OUT." HAVING RACING THOUGHTS FOR THE PAST COUPLE OF DAYS. PT DENIES BEING SUICIDAL AND HOMICIDAL BUT STATES WANT TO STAY FOR VOLUNTARY PSYCH EVAL. STABLE VITALS. NAD NOTED. AWAITING MD CASTILLO.
--- NOTE | 2020-04-01 18:15 | NUR ---
DR DAVIS AT BEDSIDE FOR EVAL.
--- NOTE | 2020-04-01 18:23 | NUR ---
PAPER BOX MAKER AT BEDSIDE FOR BLOOD DRAW.
[2020-04-01 18:27] LABS: BASOPHILS % (AUTO) 0.4 % (0.0-2.0); EOSINOPHILS % (AUTO) 0.1 % (0.0-6.0); HEMATOCRIT 43 % (39-51); HEMOGLOBIN 14.2 g/dL (13.5-17.5); LYMPHOCYTES # (AUTO) 5.3 /CMM (0.8-4.8); LYMPHOCYTES % (AUTO) 47.1 % (20.0-44.0); MEAN CORPUSCULAR HGB CONC 33 g/dl (31.0-36.0); MEAN CORPUSCULAR VOLUME 91 fL (80-96); MONOCYTES # (AUTO) 0.6 /CMM (0.1-1.30); MONOCYTES % (AUTO) 5.1 % (2.0-12.0); NEUTROPHILS # (AUTO) 5.3 /CMM (1.8-8.9); NEUTROPHILS % (AUTO) 47.3 % (43.0-81.0); PLATELET COUNT (AUTO) 277 /CMM (150-450); WHITE BLOOD COUNT (AUTO) 11.2 K/uL (4.3-11.0)
[2020-04-01] MEDS ORDERED: OLANZAPINE 5 MG TABLET PO ONE (18:30)
[2020-04-01 18:34] LABS: CALCIUM, SERUM 9.1 mg/dL (8.5-10.1); CARBON DIOXIDE 24 mmol/L (21-32); CHLORIDE 97 mmol/L (98-107); GLUCOSE 96 mg/dL (74-106); POTASSIUM 3.8 mmol/L (3.5-5.1); SODIUM SERUM 130 mmol/L (136-145); UREA NITROGEN, BLOOD 8 mg/dL (7-18)
[2020-04-01 18:50] LABS: ALANINE AMINOTRANSFERASE 40 U/L (12-78); ALBUMIN 4.1 g/dL (3.4-5.0); ALCOHOL, BLOOD < 3 mg/dL (0-0); ALKALINE PHOSPHATASE 46 U/L (46-116); ASPARTATE AMINOTRANSFERASE 30 U/L (15-37); BILIRUBIN,DIRECT 0.2 mg/dL (0.0-0.2); BILIRUBIN,TOTAL 0.6 mg/dL (0.2-1.0); TOTAL PROTEIN, SERUM 7.9 g/dL (6.4-8.2)
[2020-04-01 18:51] LABS: ACETAMINOPHEN < 2 ug/ml (10-30)
[2020-04-01 19:01] LABS: BILIRUBIN,URINE Negative (NEGATIVE); BLOOD, URINE Negative Ery/uL (NEGATIVE); COLOR,URINE Yellow (YELLOW); LEUKOCYTE ESTERASE ,URINE Negative (NEGATIVE); NITRITE, URINE Negative (NEGATIVE); PH,URINE 5.5 (5.0-8.0); PROTEIN,URINE Negative (NEGATIVE); UGLUCOSE Negative (NEGATIVE); UROBILINOGEN,URINE 0.2 EU/dL (0.2)
[2020-04-01 19:29] LABS: BACTERIA,URINE Rare /HPF (None Seen); RBC,URINE NONE SEEN /HPF (0-2); SQUAMOUS EPITHELIAL CELL,UR Few /HPF (None Seen); WBC,URINE NONE SEEN /HPF (0-3)
[2020-04-01] MEDS ORDERED: OLANZAPINE 5 MG TABLET ONE (19:37)
--- NOTE | 2020-04-01 19:47 | NUR ---
PT MEDICATED ORDERED
--- NOTE | 2020-04-01 20:10 | NUR ---
PT EVALUATED BY MARK
--- NOTE | 2020-04-01 22:25 | NUR ---
COVID SWAB SENT TO LAB
--- NOTE | 2020-04-01 22:55 | NUR ---
COVID NEGATIVE PER LAB
--- NOTE | 2020-04-01 23:55 | NUR ---
called RN sup for geropsych bed
--- NOTE | 2020-04-02 00:33 | NUR ---
REPORT GIVEN TO MARIANNA OLSEN FOR [facility]
[2020-04-02] MEDS: BLOOD SUGAR DIAGNOSTIC 1 EACH STRIP IN ONE ×2 (01:46→02:54)
[2020-04-02] MEDS ORDERED: TEMAZEPAM 7.5 MG CAPSULE PO PRN (02:00)
[2020-04-02] MEDS ORDERED: MAG HYDROX/AL HYDROX/SIMETH 30 ML UDC PO PRN (02:00)
[2020-04-02] MEDS ORDERED: LORAZEPAM 0.5 MG TABLET PO PRN (02:00)
[2020-04-02] MEDS ORDERED: ACETAMINOPHEN 325 MG TABLET PO PRN (02:00)
[2020-04-02] MEDS ORDERED: MAGNESIUM HYDROXIDE 30 ML UDC PO PRN (02:00)
--- NOTE | 2020-04-02 02:54 | NUR ---
GPS INVESTMENT SPECIALIST NOTE: This is a 49 y/o male who requested a voluntary admission, c/o depression and anxiety. During face to face assessment,patient appears to be disheveled,unkempt ,tearful,poor eye contact,blunted affect,unable to concentrate on one topic,easily irritable,c/o poor appetite ,not sleeping,has racing thoughts,limited verbalization of thoughts and feelings, and claiming that he has no support from friends and family.Patient reported that his medication is not effective and he was here before as inpatient for history of Bipolar disorder. Patient was contraband,skin assessment done (skin is intact).Reviewed Patient's Rights and he verbalized understanding.Patient retired to bed after signing the admission paperwork.MD's notified of patient admission.Will continue to monitor q15 minutes rounds for safety..
[2020-04-02 03:06] VITALS: BP 140/77
[2020-04-02 07:33] LABS: CREATININE 0.8 mg/dL (0.6-1.3)
[2020-04-02 08:00] VITALS: BP 117/74
[2020-04-02] MEDS: LEVOTHYROXINE SODIUM 75 MCG TABLET PO SCH (08:33)
[2020-04-02] MEDS ORDERED: ACAL100C PO (09:00)
--- NOTE | 2020-04-02 10:30 | NUR ---
GPS/RN-NOTES CURING ROOM SUPERVISOR MADE DR. RODRIGUES AWARE REGARDING PATIENT MEDICATION OF ACALABRUTINIB AND THAT HE NEED TO RECONCILE, STATED " OK".
--- NOTE | 2020-04-02 12:10 | NUR ---
Initial Discharge Plan: Pt currently resides in his apartment alone located at [address] [place] [address]; ([phone]). Per pt, he would like to return to his home. SW will work with the pt and the MD regarding appropriate discharge planning. SW will form a safe and proper plan.
[2020-04-02] MEDS: ARIPIPRAZOLE 5 MG TABLET PO SCH ×2 (13:56→21:28)
[2020-04-02] MEDS ORDERED: clonazePAM 0.5 MG TABLET PO SCH ×2 (14:00→17:00)
[2020-04-02 16:00] VITALS: BP 119/87
[2020-04-02] MEDS: GABAPENTIN 100 MG CAPSULE PO SCH (17:50)
[2020-04-02 19:46] VITALS: BP 113/61
[2020-04-02] MEDS ORDERED: clonazePAM 1 MG TABLET PO PRN (21:30)
[2020-04-02] MEDS ORDERED: CARBAMAZEPINE 200 MG TABLET PO SCH (22:00)
--- NOTE | 2020-04-02 22:08 | NUR ---
GPS-RN NOTE: MEDICATION REFUSAL PATIENT REFUSED TEGRETOL DOSE FOR TONIGHT. PER PATIENT "I'M NOT TAKING TEGRETOL MEDICATION SINCE SEPTEMBER OF THIS YEAR". CALLED [facility] ON-CALL LE INFORMED HIM REGARDING TEGRETOL ORDER. PER PLANT SPECIALIST LE, ENDORSE TO PSYCHIATRIST IN AM. WILL ENDORSE TO THE DAY SHIFT NURSE.
[2020-04-02] MEDS: clonazePAM 0.5 MG TABLET PO PRN (22:54)
--- NOTE | 2020-04-02 22:54 | NUR ---
GPS-RN NOTE: ANXIETY PATIENT C/O FEELING ANXIOUS. PT REQUESTED KLONOPIN. PRN CLONAZEPAM 0.5MG PO GIVEN. WILL CONTINUE TO MONITOR PATIENT'S SAFETY.
[2020-04-03 07:28] LABS: CHOLESTEROL 142 mg/dL (<200); HDL CHOLESTEROL 44 mg/dL (40-60); LDL 88 mg/dL (0-99); TRIGLYCERIDES 55 mg/dL (30-150)
[2020-04-03] MEDS: GABAPENTIN 100 MG CAPSULE PO SCH ×3 (07:42→16:34)
[2020-04-03] MEDS: LEVOTHYROXINE SODIUM 75 MCG TABLET PO SCH (07:42)
[2020-04-03] MEDS: ARIPIPRAZOLE 5 MG TABLET PO SCH ×2 (07:42→20:26)
[2020-04-03 08:00] VITALS: BP 120/63
[2020-04-03] MEDS: CALQUENCE 100 MG PO SCH ×2 (10:08→16:36)
--- NOTE | 2020-04-03 12:15 | NUR ---
Individual Intervention: SW met with the pt in the hallway for an individual intervention. Pt informed the SW that he was starting to feel better after getting some of his medication. He then informed the SW that he has an evaluation at this [facility] housing on Monday and that he would like to leave before then. SW informed the pt to speak to the pts MD as he has not been in the hospital long but he is a voluntary pt and explained the process of discharging.
[2020-04-03 19:59] VITALS: BP 116/72
[2020-04-04] MEDS: clonazePAM 0.5 MG TABLET PO PRN ×2 (01:28→19:52)
--- NOTE | 2020-04-04 01:34 | NUR ---
RN NOTE: ANXIETY PATIENT C/O FEELING ANXIOUS. PT REQUESTED KLONOPIN. PRN , KLONOPIN 0.5MG PO GIVEN PER PT. REQUEST. WILL CONTINUE TO MONITOR PATIENT'S SAFETY AND BEHAVIOR.
--- NOTE | 2020-04-04 06:43 | NUR ---
GPS RN NOTES: PT. RESTING IN HIS ROOM, PT.REMAINED STABLE THROUGHOUT SHIFT, NO S/S OF DISTRESS NOTED , ALL CARE NEEDS MET ANTICIPATED. MED COMPLIANT ,WILL CONTINUE TO MONITOR FOR SAFETY BEHAVIOR, AND ENDORSE TO AM SHIFT FOR CONTINUITY OF CARE.
[2020-04-04] MEDS: LEVOTHYROXINE SODIUM 75 MCG TABLET PO SCH (08:01)
[2020-04-04] MEDS: GABAPENTIN 100 MG CAPSULE PO SCH ×3 (08:01→17:03)
[2020-04-04] MEDS: ARIPIPRAZOLE 5 MG TABLET PO SCH ×2 (08:01→21:06)
[2020-04-04] MEDS: CALQUENCE 100 MG PO SCH ×2 (08:01→16:05)
[2020-04-04 08:20] VITALS: BP 121/68
[2020-04-04 16:00] VITALS: BP 117/77
[2020-04-04 20:22] VITALS: BP 107/76
[2020-04-05 06:49] LABS: CREATININE 0.9 mg/dL (0.6-1.3); MAGNESIUM 2.2 mg/dL (1.8-2.4); PHOSPHORUS 3.3 mg/dL (2.5-4.9); POTASSIUM 4.1 mmol/L (3.5-5.1)
[2020-04-05 06:53] LABS: URIC ACID 4.9 mg/dL (2.6-7.2)
[2020-04-05 08:00] VITALS: BP 119/76
[2020-04-05] MEDS: GABAPENTIN 100 MG CAPSULE PO SCH (08:18)
[2020-04-05] MEDS: LEVOTHYROXINE SODIUM 75 MCG TABLET PO SCH (08:19)
[2020-04-05] MEDS: ARIPIPRAZOLE 5 MG TABLET PO SCH ×2 (08:19→20:29)
[2020-04-05] MEDS: CALQUENCE 100 MG PO SCH ×2 (08:19→17:17)
[2020-04-05] MEDS: GABAPENTIN 300 MG CAPSULE PO SCH ×2 (14:15→17:17)
[2020-04-05 16:00] VITALS: BP 120/84
[2020-04-05 20:22] VITALS: BP 114/72
[2020-04-05] MEDS: clonazePAM 0.5 MG TABLET PO PRN (20:30)
[2020-04-06 08:00] VITALS: BP 126/90
[2020-04-06] MEDS: ARIPIPRAZOLE 5 MG TABLET PO SCH ×2 (08:11→21:24)
[2020-04-06] MEDS: GABAPENTIN 300 MG CAPSULE PO SCH ×3 (08:11→17:14)
[2020-04-06] MEDS: CALQUENCE 100 MG PO SCH ×2 (08:11→17:14)
[2020-04-06] MEDS: LEVOTHYROXINE SODIUM 75 MCG TABLET PO SCH (08:11)
--- NOTE | 2020-04-06 14:46 | NUR ---
Group Note: SW encouraged the pt to attend group therapy on 04/06/20 at 2pm on the topic of suicidal ideation. Pt opened up about how he has had trouble with suicidal ideation in the past but he has been feeling much better about his life and how to handle his anxiety. Pt stated that he has been working on thinking about the important people in his life. Pt stated that he is excited about going back to his home so that he can go back to his life.
[2020-04-06 16:00] VITALS: BP 125/69
[2020-04-06 19:48] VITALS: BP 131/72
[2020-04-07] MEDS: clonazePAM 0.5 MG TABLET PO PRN (03:32)
--- NOTE | 2020-04-07 03:33 | NUR ---
GPS RN NOTE: ANXIETY PT WOKE UP AND STATED HE WAS FEELING ANXIOUS AND WAS UNABLE TO GO BACK TO SLEEP. PT REQUESTED KLONOPIN, VSS, ADMIN KLONOPIN PRN, WILL REASSESS AND CONTINUE TO MONITOR Q15MIN FOR SAFETY AND BEHAVIOR
[2020-04-07] MEDS: LEVOTHYROXINE SODIUM 75 MCG TABLET PO SCH (06:37)
[2020-04-07 07:55] VITALS: BP 119/75
[2020-04-07] MEDS: ARIPIPRAZOLE 5 MG TABLET PO SCH (08:38)
[2020-04-07] MEDS: GABAPENTIN 300 MG CAPSULE PO SCH ×2 (08:38→12:27)
[2020-04-07] MEDS: CALQUENCE 100 MG PO SCH (08:39)
--- NOTE | 2020-04-07 12:08 | NUR ---
Discharge Note: Pt was discharged back to his home [place] at [address] [place] [address], [facility] [address], [place] [address]; ([phone]). There was no one to notify regarding his discharge. Pt was transported via taxi at 11am. Upon discharge, the pt appears to be in a euthymic mood and presents with a calm affect. Pt appears to be alert and oriented x4 (time, place, self and situation). Pt appears to be well groomed and appropriately dressed. Pt appears to be ambulatory with a steady gait. Pt denied both suicidal and homicidal ideation as well as auditory and visual hallucinations. Pt will continue to follow up with his psychiatrist, Dr. Carmen Solorzano, located at [address] [place] [phone]; ; fax number: . Pt has an appointment on 04/15/20 at 1:30pm. Pt will also be under the care of his surgical product sales consultant, Dr. Mari Warren, located at [id number] [place] [id number]; . Multidisciplinary exit care form was done, printed, signed, and given to the patient.
--- NOTE | 2020-04-07 12:40 | NUR ---
ENVIRONMENTAL REMEDIATION ENGINEER NOTE: 49 YEAR OLD MALE DISCHARGED HOME IN STABLE CONDITION. COMPLIANT WITH MEDICATIONS, COOPERATIVE WITH TREATMENT PLANS. PATIENT DENIES SI/HI AND INSTRUCTED TO GO TO THE NEAREST ER IF DEVELOPING SI/HI. BEHAVIOR IMPROVED, PSYCHIATRIC TREATMENT PLANS MET, MEDICAL TREATMENT PLANS DEFERRED FOR CONTINUAL MONITORING. EDUCATED PT ABOUT THE EXIT-CARE AND COPY PROVIDED. RETURNED PERSONAL BELONGINGS TO PATIENT. MEDICATIONS RECONCILED WITH DR. BOURGEOIS AND DR. PEARSON. PATIENT SIGNED DISCHARGE PAPERWORK. NO WOUNDS ON ADMIT OR DISCHARGE. PATIENT ID BAND REMOVED. PATIENT LEFT THE UNIT AT 1240 VIA TAXI.
--- NOTE | 2020-04-07 13:39 | NUR ---
UR Note: SUNDAY conducted a discharge clinical for pts [employer] pillowcase sewer, Kenn ([phone]), on her voicemail.
== END 2020-04-07 12:40 | disposition home or self-care (01) | DRG 885 ==
LOC: ER 17:38 → GPS 04-02 00:51
PROVIDERS: ADMIT Psychiatry & Neurology Psychosomatic Medicine; ATTEND Student in an Organized Health Care Education/Training Program
DX: F25.0 Schizoaffective disorder, bipolar type (principal); R45.851 Suicidal ideations; E22.2 Syndrome of inappropriate secretion of antidiuretic hormone; C91.10 Chronic lymphocytic leukemia of B-cell type not having achieved remission; E03.9 Hypothyroidism, unspecified; F41.9 Anxiety disorder, unspecified; F12.10 Cannabis abuse, uncomplicated; F32.9 Major depressive disorder, single episode, unspecified; Z79.899 Other long term (current) drug therapy; R27.8 Other lack of coordination; Z91.81 History of falling; R53.1 Weakness; F39 Unspecified mood [affective] disorder; T42.1X5A Adverse effect of iminostilbenes, initial encounter; Y92.9 Unspecified place or not applicable
CPT/HCPCS: 36415; 80048-TC; 80061-TC; 80076-TC; 81000-TC; 82565-TC; 82962-TC; 83735-TC; 84100-TC; 84443-TC; 84550-TC; 85025-TC; 87081-TC; C9803; G0480